=== PATIENT | male | born 1975 | race Caucasian/White ===

== ENCOUNTER → 2024-12-29 07:17 | Outpatient (CLI) | payer OTHER, SELFPAY ==
--- NOTE | 2024-12-29 07:24 | DI.RAD.S_ITS ---
PROCEDURE: XR FOOT RT 2V INDICATIONS: FOOT PAIN TECHNIQUE: 2 views of the foot were acquired. COMPARISON: None. FINDINGS: Bones: No fractures or dislocations. No suspicious bony lesions. Postsurgical calcaneal as well as tarsal fusion is present. Hardware is intact without hardware fracture or periprosthetic lucency to suggest loosening. Alignment is stable. Scattered IP degenerative narrowing. Soft tissues: No tibiotalar joint effusion. Achilles tendon appears normal. IMPRESSION: Postsurgical changes as above. Dictated by: Trish Calvert M.D. on 12/29/2024 at 15:36 Approved by: Trish Calvert M.D. on 12/29/2024 at 15:36
--- NOTE | 2024-12-29 07:24 | DI.RAD.S_ITS ---
PROCEDURE: XR FOOT LT 2V INDICATIONS: FOOT PAIN TECHNIQUE: 2 views of the foot were acquired. COMPARISON: None. FINDINGS: Bones: No fractures or dislocations. No suspicious bony lesions. Postsurgical changes including talocalcaneal as well as tarsal fusion. Hardware is intact without hardware fracture or periprosthetic lucency to suggest loosening. Alignment is stable. IP degenerative narrowing. Soft tissues: No tibiotalar joint effusion. Achilles tendon appears normal. IMPRESSION: Postsurgical changes as above. Dictated by: Trish Calvert M.D. on 12/29/2024 at 15:36 Approved by: Trish Calvert M.D. on 12/29/2024 at 15:37
== END ==
PROVIDERS: PCP Family Medicine; Referring Provider Family Medicine; Visit Provider Family Medicine
DX: M79.671 Pain in right foot (principal); M79.672 Pain in left foot
CPT/HCPCS: 73620